=== PATIENT | male | born 1990 | race Caucasian/White ===

== ENCOUNTER 2021-10-22 16:42 | Outpatient (RCR) | payer MEDICAID, SELFPAY ==
--- NOTE | 2021-10-23 10:15 | HP.PTEVAL ---
Patient's Visit Information ROSAURA LOUIS is a 31 year old M referred to Physical Therapy by LION Sims with a diagnosis of Osteogenesis Imperfecta, wheel chair evaluation. Date of Evaluation: 10/22/21 Physical Therapist: Moe Sims DPT - Visit Plan Frequency: 1x/Week Duration: 1 Week Plan: Pt. was evaluated for need for new WC. From his evaluation today, he is in need of a new one. His cushion has broken down, he no longer had leg or arm rest and his brakes no longer work properly. - Subjective Pt. is here today for her wheel chair evaluation. Pt. has osteogenesis imperfecta. Pt. has a current WC, but has been well used and is now missing some pieces. Pt. reports that he likes his current chair and gets around well, but needs a chair that is not broken. Pt. uses his chair for all mobility as he does not walk. He is able to independent transfer and get around the house, but uses assistance from mother for longer distances. Pt. reports no shoulder pain with his mobility and is doing well. He stay in his chair most of the day, mostly in home. He is overall independent at a WC level. - Objective POSTURE: Pt. has increased R lean in sitting. Pt. is able to correct, but does have a lean. He tends to sit cross legged most of the time. PALPATION: Pt. has no pain in distal LEs. Pt. has minimal muscle tone in BLEs. No pain at rest. NEURO: Pt. has normal sensation in BLEs and back. No reported skin break down. ROM: Pt. has general flexed posture. BLEs: tightness into Bilateral DF., tight HS, but both knees and hip has decent ROM. Stiff into trunk flexion as he sits most/all of the day. MMT: Pt. has good trunk strength in sitting positions, able to maintain good stability against multidirectional over pressures. Pt. does have R trunk lean, but is varun. Pt. has limited LE strength 3/5 throughout. WC mobility: Pt. able to self propel in WC with out issues, Proper use of UEs on wheels, he does need extended brake to reach. Needs anti tip bars due to major of body mass posterior to wc center of gravity. He tends to sit cross legged in wc as this is more comfortable. No issues with fatigue with self propelling 500' today. Pt. is need of a new WC. His current chair is well broken down including not having leg rests, arm rest and his cushion is dipping down in middle. he does like this kind of wc, but loren benefit from a new one. On his new chair, patient would require arm rests and rigid higher back for increased trunk support. He would require chair cushion due to time spent in chair throughout the day. He does well with standard wheels as he can manage well. Pt. does also require anti tip bars as his COG is more posterior then expected as his sits cross legged and lack of LE mass in his legs. - Balance/Special Test Scores Lower Extremity Functional Score: 20 - Goals Goal 1:: STG: Pt. to have WC evaluation to determine need for new WC. Goal Time Frame: 1 Week - Rehabilitation Potential Physical Therapy Diagnosis: Pt. is here today for his WC evaluation with diagnosis of Osteogenesis Imperfecta. Pt. is currently non ambulatory resulting in heavy/consistent use of his WC. Pt. marked limited functional mobility, weakness, difficulty with walking. He currently uses a WC for his mobility, but his current WC and cushion has broken down and is now resulting in need for a new WC. Rehabilitation Potential: Excellent - Anticipated Interventions Patient/Client Instruction: Educate patient on: Condition, Plan of Care, Risk Factors For the Purpose of:: To improve decision making, To facilitate caregiver knowledge, To improve self management, To prevent re-injury, To improve ability to perform tasks related to life management Assistive Devices: Wheelchair For the Purpose of:: To increase tolerance to activity/condition/position, To improve performance and independence with ADL's Thank you for the opportunity to evaluate your patient. For Medicare and Medicare HMO plans, please review the plan of care and approve it. It will need to be FAXED BACK to us at [phone] for Medicare purposes. For Medicare only, by signing this I certify the plan of care. Please let me know if there are questions or concerns regarding this plan of care. Physician Signature: Date:
== END 2021-10-22 19:00 | disposition home or self-care (01) ==
LOC: PT 16:42
PROVIDERS: PCP Nurse Practitioner Family; Referring Provider Nurse Practitioner Family; Visit Provider Nurse Practitioner Family
DX: Q78.0 Osteogenesis imperfecta (principal)
CPT/HCPCS: 97161